=== PATIENT | male | born 1965 | race Caucasian/White ===

== ENCOUNTER 2021-01-18 03:13 | Emergency (ER) | payer OTHER ==
[~2021-01-18] VITALS: Ht 172.7 cm; Wt 99.8 kg
[~2021-01-18 03:13] MED LIST: LEVOFLOXACIN500 MG PO; LOPID600 MG PO; PERCOCET 325 MG1 TA7 PO; PRILOSEC20 M1 PO; ZESTRIL,PRINIVI10 MG PO
[2021-01-18] MEDS ORDERED: ZITHROMAX250 MG PO (04:04)
[2021-01-18] MEDS ORDERED: PREDNISONE20 M1 PO (04:04)
== END 2021-01-18 04:36 | disposition home or self-care (01) ==
LOC: ED 03:13
DX: J40 Bronchitis, not specified as acute or chronic (principal); Z88.0 Allergy status to penicillin; Z79.899 Other long term (current) drug therapy